=== PATIENT | male | born 1975 | race Two or more races ===

== ENCOUNTER 2019-10-27 12:30 | Emergency (ER) | payer SELFPAY ==
[~2019-10-27] VITALS: Ht 167.6 cm; Wt 77.0 kg
[2019-10-27 13:03] VITALS: BP 151/103
[2019-10-27] MEDS ORDERED: DOCU-109 PO (13:36)
[2019-10-27] MEDS ORDERED: HYDR30CR61 TP (13:36)
--- NOTE | 2019-10-27 13:37 | PHYS DOC ---
Past Medical History Past Medical History: High Cholesterol, Hypertension (RAPHAEL HOPKINS APRN) Past Surgical History: Other Additional Past Surgical Histo: tumor removed rt side head (RAPHAEL HOPKINS APRN) Smoking Status: Never Smoker Alcohol Use: None (RAPHAEL HOPKINS APRN) Adult General Chief Complaint Chief Complaint: HEMORRHOIDS HPI HPI Patient is a 44 year old male who presents with patient states for the last month he has had rectal burning and pain when he is straining to get out of his stool. He states that he might the a small amount of blood. He states when he is having a stool with pain is 10 out of 10 but when he is just sitting the pain is a 4 out of 10. (RAPHAEL HOPKINS APRN) Review of Systems Review of Systems GI: 1200 rectal hemmorhoid. Denies abdominal pain, nausea, vomiting, bloody stools or diarrhea [] All other systems were reviewed and found to be within normal limits, except as documented in this note. (RAPHAEL HOPKINS APRN) Allergies Allergies Allergies Coded Allergies Type Severity Reaction Last Updated Verified No Known Drug Allergies 10/27/19 No (GILLES MANSFIELD MD) Physical Exam Physical Exam Constitutional: Well developed, well nourished, no acute distress, non-toxic appearance. [] HENT: Normocephalic, atraumatic, bilateral external ears normal, oropharynx id[address], no oral exudates, nose normal. [] Eyes: PERRLA, EOMI, conjunctiva normal, no discharge. [] Neck: Normal range of motion, no tenderness, supple, no stridor. [] Cardiovascular:Heart rate regular rhythm, no murmur [] Lungs & Thorax: Bilateral breath sounds clear to auscultation [] Abdomen: Bowel sounds normal, soft, no tenderness, no masses, no pulsatile masses. [] Skin: 1200 at rectum pea sized tender hemmorhoid. Warm, dry, no erythema, no rash. [] Back: No tenderness, no CVA tenderness. [] Extremities: No tenderness, no cyanosis, no clubbing, ROM intact, no edema. [] Neurologic: Alert and oriented X 3, normal motor function, normal sensory function, no focal deficits noted. [] Psychologic: Affect normal, judgement normal, mood normal. [] (RAPHAEL HOPKINS APRN) Current Patient Data Vital Signs Vital Signs Date Time Temp Pulse Resp B/P (MAP) Pulse Ox O2 Delivery O2 Flow Rate FiO2 10/27/19 13:03 98.3 85 16 151/103 (119) 97 Room Air 98.3 (GILLES MANSFIELD MD) EKG EKG [] (RAPHAEL HOPKINS APRN) Radiology/Procedures Radiology/Procedures [] (RAPHAEL HOPKINS APRN) Course & Med Decision Making Course & Med Decision Making Pertinent Labs and Imaging studies reviewed. (See chart for details) Patient placed on stool softeners and Anusol. Patient to follow-up with his primary care provider. Rectal Exam: Normal tone, No mass, Positive control, 1200 at rectum pea sized hemmorhoid that is non thrombosed and normal skin toned. Tender to palpation. Stool: Brown [] (RAPHAEL HOPKINS APRN) Course & Med Decision Making Staff Physician Addendum: I was working in the ER during the course of this patient's visit. I was available for consultation as needed, but I was not directly involved in the care of this patient. (GILLES MANSFIELD MD) Dragon Disclaimer Dragon Disclaimer This electronic medical record was generated, in whole or in part, using a voice recognition dictation system. (RAPHAEL HOPKINS APRN) Departure Departure Impression: Primary Impression: Hemorrhoid Disposition: HOME, SELF-CARE Condition: STABLE Referrals: UNKNOWN PCP NAME (PCP) Patient Instructions: Hemorrhoids Additional Instructions: Use medication as ordered. Use colace as a stool softner. Drink plenty of fluids. Scripts Docusate Sodium (COLACE) 100 Mg Capsule 1 CAP PO BID for 15 Days, #30 CAP 0 Refills Prov: RAPHAEL HOPKINS APRN 10/27/19 Hydrocortisone (ANUSOL-HC) 30 Gm Cream..g. 1 DENISSE TP TID for 10 Days, #30 GM 0 Refills Prov: RAPHAEL HOPKINS APRN 10/27/19 Problem Qualifiers Primary Impression: Hemorrhoid Hemorrhoid type: unspecified Qualified Codes: K64.9 - Unspecified hemorrhoids RAPHAEL HOPKINS APRN Oct 27, 2019 13:37 GILLES MANSFIELD MD Oct 28, 2019 06:37
== END 2019-10-27 14:03 | disposition home or self-care (01) ==
LOC: ER 12:30
DX: K64.8 Other hemorrhoids (principal); E78.00 Pure hypercholesterolemia, unspecified; I10 Essential (primary) hypertension; Z98.890 Other specified postprocedural states
CPT/HCPCS: 99282

== ENCOUNTER 2020-02-21 19:00 | Inpatient (IN) | payer SELFPAY ==
[~2020-02-21] VITALS: Ht 175.3 cm; Wt 81.0 kg
[~2020-02-21 19:00] MED LIST: DOCU-109 PO; HYDR30CR61 TP
--- NOTE | 2020-02-21 20:07 | RAD ---
EXAM: Chest, single view. HISTORY: Cough. COMPARISON: None. FINDINGS: A frontal view of the chest is obtained. There is diffuse interstitial infiltrate. There is no consolidation, pleural effusion or pneumothorax. The heart is normal in size. IMPRESSION: Diffuse interstitial infiltrate. There is no consolidated pneumonia. Electronically signed by: Radha Dee MD (02/21/2020 8:04 PM) [facility]
[2020-02-21] MEDS ORDERED: cefTRIAXone IV Push 1 GM VIAL. IVP ONE (20:15)
[2020-02-21] MEDS ORDERED: AZITHRMYCN 500MG IVPB FOR OMNI 250 ML IV ONE (20:15)
--- NOTE | 2020-02-21 20:19 | PHYS DOC ---
Past Medical History Past Medical History: High Cholesterol, Hypertension Additional Past Medical Histor: brain tumor (RAPHAEL HOPKINS APRN) Past Surgical History: Other Additional Past Surgical Histo: tumor removed rt side head (RAPHAEL HOPKINS APRN) Smoking Status: Never Smoker Alcohol Use: None (RAPHAEL HOPKINS APRN) General Adult EDM: Chief Complaint: COUGH HPI: HPI: Patient is a 45 year old male who presents with 5 days of cough, fever, nausea and some diarrhea. He is also complaining of left upper quadrant abdominal pain. He states that his chest feels tight. He denies shortness of breath or chest pain, dizziness, headache, LOC,, vision changes, numbness or tingling. 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 He has not been traveling. He has not been rounding by else that he knows is covid positive. He denies drinking or smoking. He denies any other past medical history except he had a brain tumor of which he had an operation for. (RAPHAEL HOPKINS APRN) Review of Systems: Review of Systems: Constitutional: fever or chills. [] Respiratory: cough or denies shortness of breath. [] GI: abdominal pain, nausea, denies vomiting, bloody stools or diarrhea. [] (RAPHAEL HOPKINS JUNIOR NETWORK ENGINEER) Heart Score: HEART Score for Chest Pain: HEART Score for Chest Pain Response (Comments) Value History Slighlty/Non-Suspicious 0 ECG Normal 0 Age >45 - < 65 1 Risk Factors 1 or 2 Risk Factors 1 Troponin < Normal Limit 0 Total 2 Risk Factors: Risk Factors: DM, Current or recent (<one month) smoker, HTN, HLP, family history of CAD, obesity. Risk Scores: Score 0 - 3: 2.5% MACE over next 6 weeks - Discharge Home Score 4 - 6: 20.3% MACE over next 6 weeks - Admit for Clinical Observation Score 7 - 10: 72.7% MACE over next 6 weeks - Early Invasive Strategies (RAPHAEL HOPKINS APRN) Allergies: Allergies: Allergies Coded Allergies Type Severity Reaction Last Updated Verified No Known Drug Allergies 10/27/19 No (RAPHAEL HOPKINS APRN) Physical Exam: PE: Constitutional: Well developed, well nourished, no acute distress, non-toxic appearance. [] HENT: Normocephalic, atraumatic, bilateral external ears normal, oropharynx moist, no oral exudates, nose normal. [] Eyes: PERRLA, EOMI, conjunctiva normal, no discharge. [] Neck: Normal range of motion, no tenderness, supple, no stridor. [] Cardiovascular:Heart rate regular rhythm, no murmur [] Lungs & Thorax: Bilateral upper breath sounds clear and lower diminished to auscultation [] Abdomen: Bowel sounds normal, soft, LUQ tenderness, no masses, no pulsatile masses. [] Skin: Warm, dry, no erythema, no rash. [] Back: No tenderness, no CVA tenderness. [] Extremities: No tenderness, no cyanosis, no clubbing, ROM intact, no edema. [] Neurologic: Alert and oriented X 3, normal motor function, normal sensory function, no focal deficits noted. [] Psychologic: Affect normal, judgement normal, mood normal. [] (RAPHAEL HOPKINS APRN) Current Patient Data: Vital Signs: Vital Signs Date Time Temp Pulse Resp B/P (MAP) Pulse Ox O2 Delivery O2 Flow Rate FiO2 02/21/20 19:27 99.9 16 113/68 (83) 100 Room Air 99.9 (RAPHAEL HOPKINS APRN) EKG: EK and read by Dr. Pfeiffer. Normal sinus rhythm. [] (RAPHAEL HOPKINS APRN) Radiology/Procedures: Radiology/Procedures: [] Impression: [facility] [address] [place] [address] IMAGING REPORT Signed PATIENT: SAUL MALONEYACCOUNT: [id number] : 1975 LOCATION: ER AGE: 45 SEX: M EXAM STATUS: PRE ER ORD. PHYSICIAN: RAPHAEL HOPKINS APRN REASON: cough PROCEDURE: PORTABLE CHEST 1V EXAM: Chest, single view. HISTORY: Cough. COMPARISON: None. FINDINGS: A frontal view of the chest is obtained. There is diffuse interstitial infiltrate. There is no consolidation, pleural effusion or pneumothorax. The heart is normal in size. IMPRESSION: Diffuse interstitial infiltrate. There is no consolidated pneumonia. Electronically signed by: Juanita Jimenez MD (02/21/2020 8:04 PM) [facility] DICTATED and SIGNED BY: JUANITA JIMENEZ MD DATE: 02/21/202003 [facility] [address] [place] [address] IMAGING REPORT Signed PATIENT: SAUL MALONEYACCOUNT: [id number] : 1975 LOCATION: ER AGE: 45 SEX: M EXAM STATUS: PRE ER ORD. PHYSICIAN: RAPHAEL HOPKINS APRN REASON: pain, nausea, cough, fever, omni 300, 75 ml iv PROCEDURE: CT ABD PELV W/ IV CONTRST ONLY CT scan of the abdomen and pelvis with contrast 02/21/2020 CLINICAL HISTORY: Abdominal pain, nausea, cough and fever. TECHNIQUE: After the intravenous administration of 75 cc of Omnipaque 300 only, contiguous, 5 mm axial sections were obtained through the abdomen and pelvis. One or more of the following individualized dose reduction techniques were utilized for this study: 1. Automated exposure control. 2. Adjustment of the mA and/or kV according to patient size. 3. Use of iterative reconstruction technique. FINDINGS: Images through the lung bases demonstrate multiple focal patchy areas of infiltrate throughout the visualized portions of the right middle lobe, the lingula of the left upper lobe and both lower lobes. The liver parenchyma has a decreased attenuation consistent with fatty infiltration. The spleen, pancreas, adrenal glands and kidneys are within normal limits. The abdominal aorta tapers normally. The gallbladder is contracted. No free fluid or free air is seen within the abdomen. The appendix is well-visualized and is within normal limits. There is no evidence of bowel obstruction. Images through the pelvis demonstrate the urinary bladder distended with urine. No free fluid is noted. Minimal S-shaped curvature of the thoracolumbar spine is seen. Degenerative changes are seen involving lower thoracic and throughout the mid and lower lumbar spine. IMPRESSION: 1. Multiple focal patchy areas of infiltrate are seen throughout the visualized portions of both lungs. 2. No acute abnormality is seen involving the abdomen or pelvis. Electronically signed by: Fernando Bassett MD (02/21/2020 10:16 PM) [id number] DICTATED and SIGNED BY: FERNANDO BASSETT MD DATE: 02/21/202215 (RAPHAEL HOPKINS APRN) Course & Med Decision Making: Course & Med Decision Making Pertinent Labs and Imaging studies reviewed. (See chart for details) Alert and oriented. Speaks in full clear sentences. Ambulatory with a steady gait. No extremity edema. Skin pink warm and dry. Temp is 99.1 in the ED. Abdomen is soft but tender to the left upper quadrant. COVID-19 CRITERIA: The patient was evaluated during the global COVID-19 pandemic, and that diagnosis was suspected/considered upon their initial presentation. Their evaluation, treatment and testing was consistent with current guidelines for patients who present with complaints or symptoms that may be related to COVID-19. [] (RAPHAEL HOPKINS APRN) Dragon Disclaimer: Dragon Disclaimer: This electronic medical record was generated, in whole or in part, using a voice recognition dictation system. (RAPHAEL HOPKINS APRN) COVID-19 Patient Risks: Age 65 or older: No Sign of co-morbidity: No Exp to person + for COVID: No Exp to PUI: No Travel from affected area: No Lower respiratory symptoms: Yes Fever: Yes (RAPHAEL HOPKINS APRN) PPE Use: Full PPE with N95 mask or PAPR: Yes (RAPHAEL HOPKINS APRN) Departure Departure Impression: Primary Impression: Suspected 2019 novel coronavirus infection Additional Impression: Pneumonia Qualified Codes: J18.9 - Pneumonia, unspecified organism Disposition: ADMITTED INPATIENT Admitting Physician: ROBERT (RAPHAEL HOPKINS APRN) Condition: STABLE Referrals: UNKNOWN PCP NAME (PCP) Justicifation of Admission Dx: Justifications for Admission: Justification of Admission Dx: Yes Comments: covid, pneumonia (RAPHAEL HOPKINS APRN) Attending Signature Attending Signature I have reviewed the PA/INSURANCE CONSULTANT's note and plan of care. I was available for consultation as needed during the patient's visit in the emergency department. I agree with the clinical impression, plan, and disposition. (TORO PFEIFFER DO) RAPHAEL HOPKINS APRN Feb 21, 2020 20:19 TORO PFEIFFER DO Feb 22, 2020 01:22
[2020-02-21] MEDS ORDERED: IV NORMAL SALINE 1000ML BAG 1,000 ML IV ONE (20:30)
[2020-02-21 20:35] LABS: BASO % 0 % (0-3); EOS % 0 % (0-3); HEMATOCRIT 40.2 % (39.0-53.0); HEMOGLOBIN 14.3 g/dL (13.0-17.5); LYMPH # 1.9 x10^3/uL (1.0-4.8); LYMPH % 25 % (24-48); MEAN CORPUSCULAR HEMOGLOBIN 31 pg (25-35); MEAN CORPUSCULAR HGB CONC 36 g/dL (31-37); MEAN CORPUSCULAR VOLUME 87 fL (79-100); MONO # 0.3 x10^3/uL (0.0-1.1); MONO % 4 % (0-9); NEUT # 5.4 x10^3/uL (1.8-7.7); NEUT % 70 % (31-73); PLATELET COUNT 140 x10^3/uL (140-400); RED CELL DISTRIBUTION WIDTH 12.7 % (11.5-14.5); WHITE BLOOD COUNT 7.7 x10^3/uL (4.0-11.0)
[2020-02-21 20:47] LABS: CALCIUM 8.5 mg/dL (8.5-10.1); CREATININE 1.2 mg/dL (0.7-1.3); GFR 65.5; POTASSIUM 3.5 mmol/L (3.5-5.1)
[2020-02-21 20:59] LABS: ALBUMIN 3.7 g/dL (3.4-5.0); ALBUMIN/GLOBULIN RATIO 0.8 (1.0-1.7); TOTAL BILIRUBIN 0.6 mg/dL (0.2-1.0); TOTAL PROTEIN 8.1 g/dL (6.4-8.2)
[2020-02-21] MEDS ORDERED: CONTRAST GIVEN. MC PRN (21:00)
[2020-02-21] MEDS ORDERED: IOHEXOL 300 MG/ML 100ML VIAL. IV ONE (21:30)
[2020-02-21 21:42] LABS: BASE EXCESS COOX -1 mmol/L (-3-3); HCO3 COOX 20 mmol/L (21-28); METHEMOGLOBIN 0.4 % (0.0-1.9); OXYHEMOGLOBIN 96.4 %; PCO2 COOX 25 mmHg (35-46); PO2 COOX 89 mmHg (75-108); SAT O2 COOX 97 % (92-99)
--- NOTE | 2020-02-21 22:19 | RAD ---
CT scan of the abdomen and pelvis with contrast 02/21/2020 CLINICAL HISTORY: Abdominal pain, nausea, cough and fever. TECHNIQUE: After the intravenous administration of 75 cc of Omnipaque 300 only, contiguous, 5 mm axial sections were obtained through the abdomen and pelvis. One or more of the following individualized dose reduction techniques were utilized for this study: 1. Automated exposure control. 2. Adjustment of the mA and/or kV according to patient size. 3. Use of iterative reconstruction technique. FINDINGS: Images through the lung bases demonstrate multiple focal patchy areas of infiltrate throughout the visualized portions of the right middle lobe, the lingula of the left upper lobe and both lower lobes. The liver parenchyma has a decreased attenuation consistent with fatty infiltration. The spleen, pancreas, adrenal glands and kidneys are within normal limits. The abdominal aorta tapers normally. The gallbladder is contracted. No free fluid or free air is seen within the abdomen. The appendix is well-visualized and is within normal limits. There is no evidence of bowel obstruction. Images through the pelvis demonstrate the urinary bladder distended with urine. No free fluid is noted. Minimal S-shaped curvature of the thoracolumbar spine is seen. Degenerative changes are seen involving lower thoracic and throughout the mid and lower lumbar spine. IMPRESSION: 1. Multiple focal patchy areas of infiltrate are seen throughout the visualized portions of both lungs. 2. No acute abnormality is seen involving the abdomen or pelvis. Electronically signed by: Fernando Bassett MD (02/21/2020 10:16 PM) [id number]
[2020-02-21 22:27] LABS: BARBITURATES NEG (NEG); BENZODIAZEPINES NEG (NEG); CANNABINOIDS NEG (NEG); COCAINE NEG (NEG); METHADONE NEG (NEG); OPIATES NEG (NEG); PHENCYCLIDINE NEG (NEG)
[2020-02-21 22:30] LABS: AMPHETAMINE/METHAMPHETAMINE NEG (NEG)
[2020-02-21] MEDS ORDERED: ONDANSETRON PF 4 MG/2 ML VIAL. IV PRN (22:45)
[2020-02-21] MEDS ORDERED: fentaNYL PF VIAL 100 MCG/2 ML VIAL IV PRN (22:45)
[2020-02-21] MEDS: ACETAMINOPHEN 325 MG TABLET. PO PRN (23:59)
[2020-02-22] VITALS (7 sets, daily range): BP systolic 104–138; BP diastolic 57–74
--- NOTE | 2020-02-22 01:00 | NUR ---
Patient admission Pt arrived to the unit at approximately 2350 via gurney from the ED. Patient information packet was explained and given to pt. All questions and concerns was explained to pt and daughter in law, Patricia via phone. At this time, pt cannot recalled what medication he takes at home. Will give this information to dayshift RN. Pt was made comfortable in bed. Will continue to monitor pt closely.
[2020-02-22] MEDS: ENOXAPARIN 40 MG/0.4 ML SYRINGE. SQ SCH ×2 (08:02→20:46)
--- NOTE | 2020-02-22 08:02 | CONS ---
DATE OF CONSULTATION: 02/22/2020 I was asked to see this 45-year-old gentleman for abnormal chest x-ray. HISTORY OF PRESENT ILLNESS: The patient speaks R[place]. He knows a few words. He says he is hot. He has cough and fever. Apparently, he has had a cough, fever, nausea and some diarrhea for the past few days. He does have some left upper quadrant pain. He feels chest tightness, but denies shortness of breath. He is on room air. PAST MEDICAL HISTORY: Hypercholesterolemia, hypertension, tumor removed from right side of head. Details are not known. ALLERGIES: No known drug allergies. MEDICATIONS: Currently, he is on Tylenol p.r.n. He was given azithromycin and Rocephin in the Emergency Room. SOCIAL HISTORY: Nonsmoker. FAMILY HISTORY: Hypertension. REVIEW OF SYSTEMS: As mentioned as above. I have discussed the patient with RN, other systems otherwise negative. PHYSICAL EXAMINATION: GENERAL: This is a well-developed gentleman. He appears comfortable. He is not on oxygen. He does not have a paradoxical abdominal motion. VITAL SIGNS: His O2 saturation on room air is 95%, respiratory rate 18, heart rate 99, blood pressure 104/62, temperature 99.9, maximum temperature 100.6. HEENT: Normocephalic, atraumatic. SKIN: There is no rash. EXTREMITIES: There is no edema. NEUROLOGIC: He is alert and oriented. LABORATORY DATA: I reviewed the following lab data: Chest x-ray shows increased interstitial marking. CT of abdomen showed multiple focal patchy areas of infiltrate throughout the visualized portion of both lungs. No acute abnormality in abdomen and pelvis. WBC 7.7, hemoglobin 14.3, platelets 140. Blood gas, ABG 7.5, pCO2 of 25, pO2 of 89 on room air. Sodium 125, potassium 3.5, chloride 88, CO2 32, BUN 9, creatinine 1.2. Lactic acid 0.9, total bilirubin 0.6, AST 80, ALT 80. Troponin less than 0.17. Lipase 117. His urine drug screen is negative. IMPRESSION: 1. Cough, febrile illness with abnormal chest x-ray, suspect it is pneumonia, rule out COVID-19. 2. Abnormal chest x-ray. 3. Electrolyte abnormality with hyponatremia. 4. Elevated LFTs. 5. COVID-19 patient under investigation. PLAN AND RECOMMENDATIONS: 1. Titrate FiO2 to keep O2 saturation more than 94%. 2. Continue antibiotic. 3. Lovenox for DVT prophylaxis. We will do aggressive prophylaxis with Lovenox 40 mg b.i.d. 4. Start Pepcid for stress ulcer prophylaxis. 5. May consider ID consultation. 6. Follow up COVID-19 results. Thank you very much for allowing me to participate in care of this very nice gentleman. KEELY LOPES M.D. DR: Sravani JOB#: [id number] / [id number]
[2020-02-22] MEDS: FAMOTIDINE 20 MG TABLET. PO SCH ×2 (08:03→20:46)
[2020-02-22] MEDS: ACETAMINOPHEN 325 MG TABLET. PO PRN ×3 (08:18→16:51)
--- NOTE | 2020-02-22 12:44 | EKG ---
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
--- NOTE | 2020-02-22 12:58 | HP ---
ADMIT DATE: 02/21/2020 CHIEF COMPLAINT: Cough. HISTORY OF PRESENT ILLNESS: The patient is a pleasant 45-year-old male who presented with a cough. It has been going on for 5 days. He has some associated nausea and vomiting. He also had a temperature of 101.6. Clinically, appears to have COVID-19. We are going to check for COVID-19. PAST MEDICAL HISTORY: Hyperlipidemia, hypertension, brain tumor. ALLERGIES: None. FAMILY HISTORY: Diabetes. SOCIAL HISTORY: Does not drink, smoke or take drugs. MEDICATIONS: Reviewed, please refer to the MRAD. REVIEW OF SYSTEMS: GENERAL: No history of weight change, weakness or fevers. SKIN: No bruising, hair changes or rashes. EYES: No blurred, double or loss of vision. NOSE AND THROAT: No history of nosebleeds, hoarseness or sore throat. HEART: No history of palpitations, chest pain or shortness of breath on exertion. LUNGS: He complains of cough. GASTROINTESTINAL: Denies changes in appetite, nausea, vomiting, diarrhea or constipation. GENITOURINARY: No history of frequency, urgency, hesitancy or nocturia. NEUROLOGIC: Denies history of numbness, tingling, tremor or weakness. PSYCHIATRIC: No history of panic, anxiety or depression. ENDOCRINE: No history of heat or cold intolerance, polyuria or polydipsia. EXTREMITIES: Denies muscle weakness, joint pain, pain on walking or stiffness. PHYSICAL EXAMINATION: VITALS: Within normal limits and are stable. GENERAL: No apparent distress. Alert and oriented. HEENT: Normal cephalic atraumatic, external auditory canals are patent EYES: Extraocular muscles are intact, pupils are equally round and reactive to light and accommodation MUSCULOSKELETAL: Well developed, well nourished, good range of motion ENDOCRINE: No thyromegaly was palpated LYMPHATICS: No cervical chain or axillary nodes were noted HEMATOPOIETIC: No bruising NECK: Supple, no JVD, no thyromegaly was noted. LUNGS: He has decreased breath sounds with crackles. HEART: RRR, S1, S2 present. Peripheral pulses intact, no obvious murmurs were noted. ABDOMEN: Soft, nontender. Positive bowel sounds no organomegaly, normal bowel sounds. EXTREMITIES: Without any cyanosis, clubbing, or edema. Pedal pulses intact, Homans sign is negative. NEUROLOGIC: Normal speech, normal tone. A & O x3, moves all extremities, no obvious focal deficits. PSYCHIATRIC: Normal affect, normal mood. Stable. SKIN: No ulcerations or rashes, good skin turgor, no jaundice. VASCULAR: Good capillary refill, neurovascular bundle appears to be intact. IMAGING: Chest x-ray shows diffuse infiltrates. LABORATORY DATA: Hematology is normal. Electrolytes: Sodium 125, potassium 3.5, chloride 88, bicarbonate 32, BUN 9, creatinine 1.2, glucose 104. AST and ALT are also high. Drug screen is negative. ASSESSMENT AND PLAN: Clinical COVID-19 in a middle-aged male who has cough, elevated transaminases, fever and abnormal chest x-ray. We are highly suspicious he has COVID-19. The patient will be admitted. Consult Pulmonary. Consult Infectious Disease. Home meds, DVT prophylaxis, IV antibiotics, breathing treatments. Lovenox 40 subq once a day, Pepcid for gastrointestinal prophylaxis, p.r.n. Zofran, p.r.n. fentanyl, p.r.n. Tylenol. CT of the chest. Prognosis guarded. Await further subspecialist input. TOTAL TIME: 31 minutes. JYOTI RAMOS DO DR: ANAID/javier JOB#: [id number] / [id number]
--- NOTE | 2020-02-22 13:45 | PDOC ---
Infectious Disease Note Vital Sign Vital Signs Vital Signs Date Time Temp Pulse Resp B/P (MAP) Pulse Ox O2 Delivery O2 Flow Rate FiO2 02/22/20 11:00 100.0 95 18 121/70 (87) 92 Room Air 100.0 Labs Lab Laboratory Tests Test 02/21/20 20:02 02/21/20 20:12 02/21/20 20:31 02/21/20 22:14 White Blood Count 7.7 x10^3/uL (4.0-11.0) Red Blood Count 4.60 x10^6/uL (4.30-5.70) Hemoglobin 14.3 g/dL (13.0-17.5) Hematocrit 40.2 % (39.0-53.0) Mean Corpuscular Volume 87 fL (79-100) Mean Corpuscular Hemoglobin 31 pg (25-35) Mean Corpuscular Hemoglobin Concent 36 g/dL (31-37) Red Cell Distribution Width 12.7 % (11.5-14.5) Platelet Count 140 x10^3/uL (140-400) Neutrophils (%) (Auto) 70 % (31-73) Lymphocytes (%) (Auto) 25 % (24-48) Monocytes (%) (Auto) 4 % (0-9) Eosinophils (%) (Auto) 0 % (0-3) Basophils (%) (Auto) 0 % (0-3) Neutrophils # (Auto) 5.4 x10^3/uL (1.8-7.7) Lymphocytes # (Auto) 1.9 x10^3/uL (1.0-4.8) Monocytes # (Auto) 0.3 x10^3/uL (0.0-1.1) Eosinophils # (Auto) 0.0 x10^3/uL (0.0-0.7) Basophils # (Auto) 0.0 x10^3/uL (0.0-0.2) Sodium Level 125 mmol/L (136-145) Potassium Level 3.5 mmol/L (3.5-5.1) Chloride Level 88 mmol/L (98-107) Carbon Dioxide Level 32 mmol/L (21-32) Anion Gap 5 (6-14) Blood Urea Nitrogen 9 mg/dL (8-26) Creatinine 1.2 mg/dL (0.7-1.3) Estimated GFR (Cockcroft-Gault) 65.5 BUN/Creatinine Ratio 8 (6-20) Glucose Level 104 mg/dL (70-99) Calcium Level 8.5 mg/dL (8.5-10.1) Total Bilirubin 0.6 mg/dL (0.2-1.0) Aspartate Amino Transf (AST/SGOT) 80 U/L (15-37) Alanine Aminotransferase (ALT/SGPT) 80 U/L (16-63) Alkaline Phosphatase 88 U/L (46-116) Troponin I Quantitative < 0.017 ng/mL (0.000-0.055) Total Protein 8.1 g/dL (6.4-8.2) Albumin 3.7 g/dL (3.4-5.0) Albumin/Globulin Ratio 0.8 (1.0-1.7) Lipase 117 U/L (73-393) Ethyl Alcohol Level < 10 mg/dL (0-10) O2 Saturation 97 % (92-99) Arterial Blood pH 7.53 (7.35-7.45) Arterial Blood pCO2 at Patient Temp 25 mmHg (35-46) Arterial Blood pO2 at Patient Temp 89 mmHg (75-108) Arterial Blood HCO3 20 mmol/L (21-28) Arterial Blood Base Excess -1 mmol/L (-3-3) Oxyhemoglobin 96.4 % Methemoglobin 0.4 % (0.0-1.9) Carbon Monoxide, Quantitative 0.3 % (0.0-1.9) FiO2 21 Lactic Acid Level 0.9 mmol/L (0.4-2.0) Urine Opiates Screen Neg (NEG) Urine Methadone Screen Neg (NEG) Urine Barbiturates Neg (NEG) Urine Phencyclidine Screen Neg (NEG) Urine Amphetamine/Methamphetamine Neg (NEG) Urine Benzodiazepines Screen Neg (NEG) Urine Cocaine Screen Neg (NEG) Urine Cannabinoids Screen Neg (NEG) Urine Ethyl Alcohol Neg (NEG) Objective Assessment pt seen, consult dictated Plan Plan of Care / ROZ BAILEY MD Feb 22, 2020 13:45
[2020-02-22] MEDS ORDERED: PROCHLORPERAZINE 10 MG/2 ML VIAL. IV PRN (21:15)
[2020-02-22] MEDS: IV NORMAL SALINE 1000ML BAG 1,000 ML IV SCH (22:15)
--- NOTE | 2020-02-22 22:22 | CONS ---
DATE OF CONSULTATION: 02/22/2020 REQUESTING PHYSICIAN: Yeimy Dorsey DO REASON FOR CONSULTATION: Bilateral pneumonia, suspected COVID. HISTORY OF PRESENT ILLNESS: This is a 45-year-old gentleman who came in with cough, shortness of breath, and fever. The patient had some nausea and diarrhea. The patient has bilateral infiltrate, fever and waiting for COVID-19. PAST MEDICAL HISTORY: Positive for hyperlipidemia, hypertension, brain tumor removal done in the past. SOCIAL HISTORY: Negative for smoking, alcohol use or drug use. ALLERGIES: No known drug allergies. CURRENT MEDICATIONS: The patient received Rocephin and azithromycin one dose each. REVIEW OF SYSTEMS: As per HPI, all other systems reviewed and are negative. PHYSICAL EXAMINATION: GENERAL: Alert, oriented gentleman, not in distress. VITAL SIGNS: Stable with a T-max 101.6. Rest of vital signs stable. HEENT: NAD. NECK: Supple, no JVP, no lymphadenopathy. LUNGS: Clear. HEART: S1, S2 regular. ABDOMEN: Benign. EXTREMITIES: No edema or cyanosis. SKIN: Unremarkable. NEUROLOGIC: The patient is alert, awake, appropriate. No focal neurologic deficit. LABORATORY DATA: White count is normal at 7.7. BUN and creatinine are normal. Sodium is 125. Lactic acid is normal. ALT and AST are 80 and 80. Drug screen negative. His abdominal and pelvic CT showed multiple focal patchy areas of infiltrate throughout bilateral lungs, and abdomen is unremarkable. IMPRESSION: 1. Bilateral pulmonary infiltrate, most likely COVID-19 pneumonia. 2. Fever. 3. History of hypertension. 4. Hyperlipidemia. 5. History of brain tumor removal done. RECOMMENDATIONS: Continue Rocephin and azithromycin until COVID is reported. If the COVID is positive, then we can discontinue antibiotics. Supportive care. Convalescent plasma that we will initiate and we will continue to follow. Thank you very much, Dr. Dorsey, for giving me the opportunity to participate in this patient's care. ROZ BAILEY MD DR: RADHA/javier JOB#: [id number] / [id number]
[2020-02-23] VITALS (10 sets, daily range): BP systolic 108–127; BP diastolic 58–75
[2020-02-23] MEDS: HYDROcodone/APAP 5/325MG 1 TAB TABLET PO PRN ×2 (01:12→20:42)
[2020-02-23] MEDS: IV NORMAL SALINE 1000ML BAG 1,000 ML IV SCH ×2 (05:44→17:15)
[2020-02-23] MEDS: FAMOTIDINE 20 MG TABLET. PO SCH ×2 (09:23→20:41)
[2020-02-23] MEDS: ACETAMINOPHEN 325 MG TABLET. PO PRN ×2 (09:23→18:22)
[2020-02-23] MEDS: ENOXAPARIN 40 MG/0.4 ML SYRINGE. SQ SCH ×2 (09:23→20:43)
--- NOTE | 2020-02-23 09:42 | PDOC ---
PULMONARY PROGRESS NOTES Subjective still febrile has diarrhea on ra Vitals Vital Signs Date Time Temp Pulse Resp B/P (MAP) Pulse Ox O2 Delivery O2 Flow Rate FiO2 02/23/20 07:00 102.8 113 16 119/70 (86) 92 Room Air 102.8 Comments alert on RA appears comfortable no paradoxical abd motion no audible wheezing no rash no edema Labs Laboratory Tests Test 02/21/20 20:02 02/21/20 20:12 02/21/20 20:31 02/21/20 22:14 White Blood Count 7.7 x10^3/uL (4.0-11.0) Red Blood Count 4.60 x10^6/uL (4.30-5.70) Hemoglobin 14.3 g/dL (13.0-17.5) Hematocrit 40.2 % (39.0-53.0) Mean Corpuscular Volume 87 fL (79-100) Mean Corpuscular Hemoglobin 31 pg (25-35) Mean Corpuscular Hemoglobin Concent 36 g/dL (31-37) Red Cell Distribution Width 12.7 % (11.5-14.5) Platelet Count 140 x10^3/uL (140-400) Neutrophils (%) (Auto) 70 % (31-73) Lymphocytes (%) (Auto) 25 % (24-48) Monocytes (%) (Auto) 4 % (0-9) Eosinophils (%) (Auto) 0 % (0-3) Basophils (%) (Auto) 0 % (0-3) Neutrophils # (Auto) 5.4 x10^3/uL (1.8-7.7) Lymphocytes # (Auto) 1.9 x10^3/uL (1.0-4.8) Monocytes # (Auto) 0.3 x10^3/uL (0.0-1.1) Eosinophils # (Auto) 0.0 x10^3/uL (0.0-0.7) Basophils # (Auto) 0.0 x10^3/uL (0.0-0.2) Sodium Level 125 mmol/L (136-145) Potassium Level 3.5 mmol/L (3.5-5.1) Chloride Level 88 mmol/L (98-107) Carbon Dioxide Level 32 mmol/L (21-32) Anion Gap 5 (6-14) Blood Urea Nitrogen 9 mg/dL (8-26) Creatinine 1.2 mg/dL (0.7-1.3) Estimated GFR (Cockcroft-Gault) 65.5 BUN/Creatinine Ratio 8 (6-20) Glucose Level 104 mg/dL (70-99) Calcium Level 8.5 mg/dL (8.5-10.1) Total Bilirubin 0.6 mg/dL (0.2-1.0) Aspartate Amino Transf (AST/SGOT) 80 U/L (15-37) Alanine Aminotransferase (ALT/SGPT) 80 U/L (16-63) Alkaline Phosphatase 88 U/L (46-116) Troponin I Quantitative < 0.017 ng/mL (0.000-0.055) Total Protein 8.1 g/dL (6.4-8.2) Albumin 3.7 g/dL (3.4-5.0) Albumin/Globulin Ratio 0.8 (1.0-1.7) Lipase 117 U/L (73-393) Ethyl Alcohol Level < 10 mg/dL (0-10) O2 Saturation 97 % (92-99) Arterial Blood pH 7.53 (7.35-7.45) Arterial Blood pCO2 at Patient Temp 25 mmHg (35-46) Arterial Blood pO2 at Patient Temp 89 mmHg (75-108) Arterial Blood HCO3 20 mmol/L (21-28) Arterial Blood Base Excess -1 mmol/L (-3-3) Oxyhemoglobin 96.4 % Methemoglobin 0.4 % (0.0-1.9) Carbon Monoxide, Quantitative 0.3 % (0.0-1.9) FiO2 21 Lactic Acid Level 0.9 mmol/L (0.4-2.0) Urine Opiates Screen Neg (NEG) Urine Methadone Screen Neg (NEG) Urine Barbiturates Neg (NEG) Urine Phencyclidine Screen Neg (NEG) Urine Amphetamine/Methamphetamine Neg (NEG) Urine Benzodiazepines Screen Neg (NEG) Urine Cocaine Screen Neg (NEG) Urine Cannabinoids Screen Neg (NEG) Urine Ethyl Alcohol Neg (NEG) Medications Active Scripts Medications Dose Route/Sig Max Daily Dose Days Date Category Colace (Docusate Sodium) 100 Mg Capsule 1 Cap PO BID 15 10/27/19 Rx Anusol-Hc (Hydrocortisone) 30 Gm Cream..g. 1 Clement TP TID 10 10/27/19 Rx Impression . IMPRESSION: 1. Cough, febrile illness with abnormal chest x-ray, suspect it is pneumonia, rule out COVID-19. 2. Abnormal chest x-ray. 3. Electrolyte abnormality with hyponatremia. 4. Elevated LFTs. 5. COVID-19 patient under investigation. Plan . PLAN AND RECOMMENDATIONS: 1. Titrate FiO2 to keep O2 saturation more than 94%. 2. antibiotic per id 3. Lovenox for DVT prophylaxis. We will do aggressive prophylaxis with Lovenox 40 mg b.i.d. 4. Pepcid for stress ulcer prophylaxis. 5. ID consulted 6. Follow up COVID-19 results. discussed w KEELY Epps MD Feb 23, 2020 09:42
[2020-02-23 10:01] LABS: BASO % 0 % (0-3); EOS % 0 % (0-3); HEMATOCRIT 37.8 % (39.0-53.0); HEMOGLOBIN 13.4 g/dL (13.0-17.5); LYMPH # 1.9 x10^3/uL (1.0-4.8); LYMPH % 19 % (24-48); MEAN CORPUSCULAR HEMOGLOBIN 31 pg (25-35); MEAN CORPUSCULAR HGB CONC 35 g/dL (31-37); MEAN CORPUSCULAR VOLUME 88 fL (79-100); MONO # 0.4 x10^3/uL (0.0-1.1); MONO % 4 % (0-9); NEUT # 7.6 x10^3/uL (1.8-7.7); NEUT % 77 % (31-73); PLATELET COUNT 181 x10^3/uL (140-400); RED BLOOD COUNT 4.31 x10^6/uL (4.30-5.70); RED CELL DISTRIBUTION WIDTH 12.9 % (11.5-14.5); WHITE BLOOD COUNT 9.9 x10^3/uL (4.0-11.0)
[2020-02-23 10:19] LABS: ALBUMIN 2.9 g/dL (3.4-5.0); ALBUMIN/GLOBULIN RATIO 0.7 (1.0-1.7); CALCIUM 7.9 mg/dL (8.5-10.1); CREATININE 1.3 mg/dL (0.7-1.3); GFR 59.7; POTASSIUM 3.9 mmol/L (3.5-5.1); TOTAL BILIRUBIN 0.5 mg/dL (0.2-1.0); TOTAL PROTEIN 7.1 g/dL (6.4-8.2)
--- NOTE | 2020-02-23 11:57 | PDOC ---
[facility] PROGRESS NOTE Chief Complaint Chief Complaint COVID-19 respiratory failure Hyperlipidemia, hypertension, brain tumor. COVID-19 CRITERIA: The patient was evaluated during the global COVID-19 pandemic, and that diagnosis was suspected/considered upon their initial presentation. Their evaluation, treatment and testing was consistent with current guidelines for patients who present with complaints or symptoms that may be related to COVID-19. History of Present Illness History of Present Illness 02/23/2020 Patient seen and examined in the COVID-19 unit He is pleasantly confused I think this is his baseline Chart reviewed Discussed with RN His Covid-19 test just came back positive Vitals/I&O Vitals/I&O: Vital Signs Date Time Temp Pulse Resp B/P (MAP) Pulse Ox O2 Delivery O2 Flow Rate FiO2 02/23/20 11:00 99.6 93 18 110/58 (75) 95 Room Air 99.6 I & O 0 02/22/20 02/22/20 02/23/20 14:59 22:59 06:59 Intake Total 300 ml 60 ml 870 ml Output Total 250 ml 580 ml Balance 300 ml -190 ml 290 ml Physical Exam General: mild distress Lungs: Crackles Abdomen: No tenderness Extremities: No clubbing, No cyanosis Skin: No rashes, No breakdown Labs Labs: Laboratory Tests Test 02/23/20 09:50 White Blood Count 9.9 x10^3/uL (4.0-11.0) Red Blood Count 4.31 x10^6/uL (4.30-5.70) Hemoglobin 13.4 g/dL (13.0-17.5) Hematocrit 37.8 % (39.0-53.0) Mean Corpuscular Volume 88 fL (79-100) Mean Corpuscular Hemoglobin 31 pg (25-35) Mean Corpuscular Hemoglobin Concent 35 g/dL (31-37) Red Cell Distribution Width 12.9 % (11.5-14.5) Platelet Count 181 x10^3/uL (140-400) Neutrophils (%) (Auto) 77 % (31-73) Lymphocytes (%) (Auto) 19 % (24-48) Monocytes (%) (Auto) 4 % (0-9) Eosinophils (%) (Auto) 0 % (0-3) Basophils (%) (Auto) 0 % (0-3) Neutrophils # (Auto) 7.6 x10^3/uL (1.8-7.7) Lymphocytes # (Auto) 1.9 x10^3/uL (1.0-4.8) Monocytes # (Auto) 0.4 x10^3/uL (0.0-1.1) Eosinophils # (Auto) 0.0 x10^3/uL (0.0-0.7) Basophils # (Auto) 0.0 x10^3/uL (0.0-0.2) Sodium Level 128 mmol/L (136-145) Potassium Level 3.9 mmol/L (3.5-5.1) Chloride Level 92 mmol/L (98-107) Carbon Dioxide Level 24 mmol/L (21-32) Anion Gap 12 (6-14) Blood Urea Nitrogen 8 mg/dL (8-26) Creatinine 1.3 mg/dL (0.7-1.3) Estimated GFR (Cockcroft-Gault) 59.7 BUN/Creatinine Ratio 6 (6-20) Glucose Level 115 mg/dL (70-99) Calcium Level 7.9 mg/dL (8.5-10.1) Total Bilirubin 0.5 mg/dL (0.2-1.0) Aspartate Amino Transf (AST/SGOT) 104 U/L (15-37) Alanine Aminotransferase (ALT/SGPT) 91 U/L (16-63) Alkaline Phosphatase 103 U/L (46-116) Total Protein 7.1 g/dL (6.4-8.2) Albumin 2.9 g/dL (3.4-5.0) Albumin/Globulin Ratio 0.7 (1.0-1.7) Assessment and Plan Assessmemt and Plan Problems Medical Problems: (1) Pneumonia Status: Acute (2) Suspected 2019 novel coronavirus infection Status: Acut COVID-19 respiratory failure Hyperlipidemia, hypertension, brain tumor. Plan Covid-19 protocol Pulmonary and infectious disease are following Home meds DVT prophylaxis Full code Discussed with RN Total time 32 Comment Review of Relevant I have reviewed the following items danny (where applicable) has been applied. Medications: Current Medications Medications (Trade) Dose Ordered Sig/Elizabeth Route PRN Reason Start Time Stop Time Status Last Admin Dose Admin Prochlorperazine Edisylate (Compazine) 5 mg PRN Q6HRS PRN IV NAUSEA/VOMITING 02/22/20 21:15 02/23/20 01:07 Sodium Chloride 1,000 ml @ 100 mls/hr Q10H IV 02/22/20 21:15 02/23/20 05:44 Acetaminophen/ Hydrocodone Bitart (Lortab 5/325) 1 tab PRN Q4HRS PRN PO MODERATE PAIN 4-6 02/22/20 21:15 02/23/20 01:12 Acetaminophen (Tylenol) 650 mg Q6HRS PRN PO FEVER 02/23/20 08:45 02/23/20 09:23 Justicifation of Admission Dx: Justifications for Admission: Justification of Admission Dx: Yes Respiratory Failure: Severe Vent Deficit JYOTI RAMOS III DO Feb 23, 2020 11:57
--- NOTE | 2020-02-23 12:59 | PDOC ---
Infectious Disease Note Subjective Subjective Attempted to use the telephone for language interpretation but nobody answered the phone According to nursing he has been doing well. Remains on room air. + fevers Vital Sign Vital Signs Vital Signs Date Time Temp Pulse Resp B/P (MAP) Pulse Ox O2 Delivery O2 Flow Rate FiO2 02/23/20 11:00 99.6 93 18 110/58 (75) 95 Room Air 99.6 Physical Exam PHYSICAL EXAM GENERAL: Propped up in bed, alert in NAD HEENT: Oral cavity dry NECK: Supple, no JVP, no lymphadenopathy. LUNGS: Clear. Nonlabored HEART: S1, S2 regular. ABDOMEN: Obese, soft, nontender EXTREMITIES: No edema or cyanosis. SKIN: warm to touch. No sign of rash NEUROLOGIC: Alert, awake, appropriate. No focal neurologic deficit. Labs Lab Laboratory Tests Test 02/23/20 09:50 White Blood Count 9.9 x10^3/uL (4.0-11.0) Red Blood Count 4.31 x10^6/uL (4.30-5.70) Hemoglobin 13.4 g/dL (13.0-17.5) Hematocrit 37.8 % (39.0-53.0) Mean Corpuscular Volume 88 fL (79-100) Mean Corpuscular Hemoglobin 31 pg (25-35) Mean Corpuscular Hemoglobin Concent 35 g/dL (31-37) Red Cell Distribution Width 12.9 % (11.5-14.5) Platelet Count 181 x10^3/uL (140-400) Neutrophils (%) (Auto) 77 % (31-73) Lymphocytes (%) (Auto) 19 % (24-48) Monocytes (%) (Auto) 4 % (0-9) Eosinophils (%) (Auto) 0 % (0-3) Basophils (%) (Auto) 0 % (0-3) Neutrophils # (Auto) 7.6 x10^3/uL (1.8-7.7) Lymphocytes # (Auto) 1.9 x10^3/uL (1.0-4.8) Monocytes # (Auto) 0.4 x10^3/uL (0.0-1.1) Eosinophils # (Auto) 0.0 x10^3/uL (0.0-0.7) Basophils # (Auto) 0.0 x10^3/uL (0.0-0.2) Sodium Level 128 mmol/L (136-145) Potassium Level 3.9 mmol/L (3.5-5.1) Chloride Level 92 mmol/L (98-107) Carbon Dioxide Level 24 mmol/L (21-32) Anion Gap 12 (6-14) Blood Urea Nitrogen 8 mg/dL (8-26) Creatinine 1.3 mg/dL (0.7-1.3) Estimated GFR (Cockcroft-Gault) 59.7 BUN/Creatinine Ratio 6 (6-20) Glucose Level 115 mg/dL (70-99) Calcium Level 7.9 mg/dL (8.5-10.1) Total Bilirubin 0.5 mg/dL (0.2-1.0) Aspartate Amino Transf (AST/SGOT) 104 U/L (15-37) Alanine Aminotransferase (ALT/SGPT) 91 U/L (16-63) Alkaline Phosphatase 103 U/L (46-116) Total Protein 7.1 g/dL (6.4-8.2) Albumin 2.9 g/dL (3.4-5.0) Albumin/Globulin Ratio 0.7 (1.0-1.7) Micro Microbiology 02/21/20 Blood Culture - Preliminary, Resulted NO GROWTH AFTER 1 DAY Objective Assessment Bilateral pulmonary infiltrate, + COVID-19 pneumonia, 02/20 Fever. History of hypertension. Hyperlipidemia. History of brain tumor removal done. Plan Plan of Care airborne isolation for COVID-19 Supportive care Attending Co-Sign The patient was seen and interviewed as well as examined at the bedside. The chart was reviewed. The case was discussed. Agree with the plan of care. DIOGO MEYERS APRN Feb 23, 2020 12:59 ROZ BAILEY MD Feb 23, 2020 13:16
[2020-02-24 03:00] VITALS: BP 114/73
[2020-02-24] MEDS: IV NORMAL SALINE 1000ML BAG 1,000 ML IV SCH ×3 (03:15→20:38)
[2020-02-24 07:00] VITALS: BP 108/55
[2020-02-24] MEDS: ENOXAPARIN 40 MG/0.4 ML SYRINGE. SQ SCH ×2 (08:16→20:38)
[2020-02-24] MEDS: FAMOTIDINE 20 MG TABLET. PO SCH ×2 (08:16→20:38)
[2020-02-24] MEDS: HYDROcodone/APAP 5/325MG 1 TAB TABLET PO PRN ×2 (08:41→14:11)
[2020-02-24 10:48] VITALS: BP 110/58
--- NOTE | 2020-02-24 10:52 | PDOC ---
Infectious Disease Note Subjective Subjective Patient is having some shortness of breath but not bad he says cannulization done through [employer] ROS ROS No nausea vomiting diarrhea chest pain shortness of breath he did have a fever last yesterday Vital Sign Vital Signs Vital Signs Date Time Temp Pulse Resp B/P (MAP) Pulse Ox O2 Delivery O2 Flow Rate FiO2 02/24/20 10:48 97.8 90 18 110/58 (75) 93 Room Air 97.8 Physical Exam PHYSICAL EXAM GENERAL: Propped up in bed, alert in NAD HEENT: Oral cavity dry NECK: Supple, no JVP, no lymphadenopathy. LUNGS: Clear. Nonlabored HEART: S1, S2 regular. ABDOMEN: Obese, soft, nontender EXTREMITIES: No edema or cyanosis. SKIN: warm to touch. No sign of rash NEUROLOGIC: Alert, awake, appropriate. No focal neurologic deficit. Labs Micro Microbiology 02/21/20 Blood Culture - Preliminary, Resulted NO GROWTH AFTER 2 DAYS Objective Assessment Bilateral pulmonary infiltrate, + COVID-19 pneumonia, 02/20 Fever. History of hypertension. Hyperlipidemia. History of brain tumor removal done. Plan Plan of Care airborne isolation for COVID-19 Supportive care Plasma was given ROZ BAILEY MD Feb 24, 2020 10:51
--- NOTE | 2020-02-24 11:50 | PDOC ---
[facility] PROGRESS NOTE Chief Complaint Chief Complaint COVID-19 respiratory failure Hyperlipidemia, hypertension, brain tumor. COVID-19 CRITERIA: The patient was evaluated during the global COVID-19 pandemic, and that diagnosis was suspected/considered upon their initial presentation. Their evaluation, treatment and testing was consistent with current guidelines for patients who present with complaints or symptoms that may be related to COVID-19. History of Present Illness History of Present Illness 02/24/2020 Patient seen and examined Discussed with RN Chart reviewed Discussed with case management 02/23/2020 Patient seen and examined in the COVID-19 unit He is pleasantly confused I think this is his baseline Chart reviewed Discussed with RN His Covid-19 test just came back positive Vitals/I&O Vitals/I&O: Vital Signs Date Time Temp Pulse Resp B/P (MAP) Pulse Ox O2 Delivery O2 Flow Rate FiO2 02/24/20 10:48 97.8 90 18 110/58 (75) 93 Room Air 97.8 I & O 02/23/20 02/23/20 02/24/20 15:00 23:00 07:00 Intake Total 900 ml 400 ml 480 ml Output Total 200 ml Balance 900 ml 200 ml 480 ml Physical Exam Physical Exam: GENERAL: Propped up in bed, alert in NAD HEENT: Oral cavity dry NECK: Supple, no JVP, no lymphadenopathy. LUNGS: Clear. Nonlabored HEART: S1, S2 regular. ABDOMEN: Obese, soft, nontender EXTREMITIES: No edema or cyanosis. SKIN: warm to touch. No sign of rash NEUROLOGIC: Alert, awake, appropriate. No focal neurologic deficit. General: mild distress Lungs: Crackles Abdomen: No tenderness Extremities: No clubbing, No cyanosis Skin: No rashes, No breakdown Assessment and Plan Assessmemt and Plan Problems Medical Problems: (1) Pneumonia Status: Acute (2) Suspected 2019 novel coronavirus infection Status: Acute COVID-19 respiratory failure Hyperlipidemia, hypertension, brain tumor. Plan Covid-19 respiratory isolation He already received plasma Supportive care Duo nebs Pulmonary and infectious disease are following Home meds Trend labs DVT prophylaxis Full code Discussed with RN Total time 31 Comment Review of Relevant I have reviewed the following items danny (where applicable) has been applied. Justicifation of Admission Dx: Justifications for Admission: Justification of Admission Dx: Yes Respiratory Failure: Severe Vent Deficit JYOTI RAMOS III DO Feb 24, 2020 11:50
[2020-02-24 14:53] VITALS: BP 114/70
--- NOTE | 2020-02-24 15:43 | NUR ---
SW following. Reviewed chart and spoke with RN. Pt from home. pt on room air and oral medications. Pt COVID positive. Pt had a fever of 102 yesterday and continues to be febrile per RN. SW to continue following.
[2020-02-24] MEDS ORDERED: guaiFENesin DM 200MG/20MG 10 ML SYRUP PO PRN (17:30)
[2020-02-24 19:00] VITALS: BP 109/65
[2020-02-24 23:00] VITALS: BP 93/57
[2020-02-25 03:00] VITALS: BP 116/73
[2020-02-25 07:00] VITALS: BP 98/55
[2020-02-25] MEDS: ENOXAPARIN 40 MG/0.4 ML SYRINGE. SQ SCH (08:58)
[2020-02-25] MEDS: FAMOTIDINE 20 MG TABLET. PO SCH (08:58)
[2020-02-25] MEDS: IV NORMAL SALINE 1000ML BAG 1,000 ML IV SCH (09:15)
--- NOTE | 2020-02-25 10:18 | PDOC ---
Infectious Disease Note Subjective Subjective Patient is feeling good does have some weakness but no shortness of breath ROS ROS No nausea vomiting diarrhea chest pain abdominal pain or fever Vital Sign Vital Signs Vital Signs Date Time Temp Pulse Resp B/P (MAP) Pulse Ox O2 Delivery O2 Flow Rate FiO2 02/25/20 08:00 Room Air 02/25/20 07:00 98.0 73 18 98/55 (69) 97 98.0 Physical Exam PHYSICAL EXAM GENERAL: Propped up in bed, alert in NAD HEENT: Oral cavity dry NECK: Supple, no JVP, no lymphadenopathy. LUNGS: Clear. Nonlabored HEART: S1, S2 regular. ABDOMEN: Obese, soft, nontender EXTREMITIES: No edema or cyanosis. SKIN: warm to touch. No sign of rash NEUROLOGIC: Alert, awake, appropriate. No focal neurologic deficit. Labs Micro Microbiology 02/21/20 Blood Culture - Preliminary, Resulted NO GROWTH AFTER 2 DAYS Objective Assessment Bilateral pulmonary infiltrate, + COVID-19 pneumonia, 02/20 Fever. History of hypertension. Hyperlipidemia. History of brain tumor removal done. Plan Plan of Care Patient is on room air. Patient does not have fever. Patient can be discharged home ROZ BAILEY MD Feb 25, 2020 10:18
[2020-02-25 10:48] VITALS: BP 110/59
--- NOTE | 2020-02-25 11:11 | PDOC3 ---
Discharge Summary Visit Information Date of Admission: Feb 21, 2020 Date of Discharge: Feb 25, 2020 Final Diagnosis Problems Medical Problems: (1) Pneumonia Status: Acute (2) Suspected 2019 novel coronavirus infection Status: Acute Brief Hospital Course Allergies Allergies Coded Allergies Type Severity Reaction Last Updated Verified No Known Drug Allergies 10/27/19 No Vital Signs GENERAL: No apparent distress. Alert and oriented. HEENT: Head normocephalic, atraumatic. NECK: Supple LUNGS: Clear to auscultation. HEART: RRR, S1, S2 present, pulses intact ABDOMEN: Soft, positive bowel sounds. EXTREMITIES: No cyanosis or edema. NEUROLOGIC: Normal speech, normal tone PSYCHIATRIC: Normal affect, normal mood. SKIN: No ulceration. Vital Signs Date Time Temp Pulse Resp B/P (MAP) Pulse Ox O2 Delivery O2 Flow Rate FiO2 02/25/20 10:48 97.9 70 18 110/59 (76) 97 Room Air 97.9 Brief Hospital Course 45-year-old gentleman who camein with cough, shortness of breath, and fever. The patient had some nausea and diarrhea. The patient has bilateral infiltrate, fever and tested positive for covid 19. Bilateral pulmonary infiltrate, + COVID-19 pneumonia, 02/20 Fever. History of hypertension. Hyperlipidemia. History of brain tumor removal done. patient afebrile, without resp symptoms. can be discharged home and self isolate. Discharge Information Condition at Discharge: Improved Disposition/Orders: D/C to Home Scheduled Hydrocortisone (Anusol-Hc) 30 Gm Cream..g., 1 DENISSE TP TID for 10 Days, #30 Ref 0 Prescribed by: RAPHAEL HOPKINS APRN on 10/27/19 1336 Discontinued Medications Docusate Sodium (Colace) 100 Mg Capsule, 1 CAP PO BID for 15 Days, #30 Ref 0 Prescribed by: RAPHAEL HOPKINS APRN on 10/27/19 1336 Justicifation of Admission Dx: Justifications for Admission: Justification of Admission Dx: Yes Respiratory Failure: Severe Vent Deficit NASEEM STAKRS MD Feb 25, 2020 11:11
--- NOTE | 2020-02-25 13:29 | NUR ---
Discharge Note: [id number] Discharge instructions and discharge home medications reviewed with Patient and a copy given. All questions have been answered and understanding verbalized. The following instructions and handouts were given: discharge instructions, education and follow up recommendations. Discontinued lines and drains: Peripheral IV discontinued intact. Patient discharged to Home or Self Care with Family Member via Wheelchair off unit by PEDRO.
--- NOTE | 2020-02-25 16:16 | NUR ---
SW following. Reviewed chart and spoke with RN. Pt from home. Pt on room air and oral medications. Pt COVID positive. Pt to discharge today with no SW needs per RN.
== END 2020-02-25 13:32 | disposition home or self-care (01) | DRG 177 ==
LOC: ER 19:00 → 6 SOUTH 23:27
PROVIDERS: ADMIT Internal Medicine; ATTEND Internal Medicine
PROC: 30233K1 Transfusion of Nonautologous Frozen Plasma into Peripheral Vein, Percutaneous Approach (ICD-10-PCS; principal; 2020-02-23)
DX: U07.1 COVID-19 (principal); J12.89 Other viral pneumonia; J96.90 Respiratory failure, unspecified, unspecified whether with hypoxia or hypercapnia; E87.1 Hypo-osmolality and hyponatremia; D49.6 Neoplasm of unspecified behavior of brain; E78.00 Pure hypercholesterolemia, unspecified; E78.5 Hyperlipidemia, unspecified; I10 Essential (primary) hypertension; Z82.49 Family history of ischemic heart disease and other diseases of the circulatory system; Z83.3 Family history of diabetes mellitus; Z79.899 Other long term (current) drug therapy
CPT/HCPCS: 36415; 36600; 71045; 74177; 80053; 80307; 82805; 83605; 83690; 84484; 85025; 86850; 86900; 86901; 86927; 87040; 93005; 96365; 96366; 96375; 99285; G0480; J0456; J0696; J0780; J1650; J2405; J7030; Q9967; G0378; P9017; U0003-CS